=== PATIENT | female | born 1980 | race Two or more races ===

== ENCOUNTER 2019-08-06 03:21 | Emergency (ER) | payer SELFPAY ==
[~2019-08-06] VITALS: Ht 157.5 cm; Wt 72.0 kg
[2019-08-06] MEDS ORDERED: HYDROcodone/APAP 5/325 TABLET ONE (03:46)
--- NOTE | 2019-08-06 03:53 | NUR ---
PER ER RAGHAVENDRA GALLARDO, HOLD OFF ON URINE SAMPLE FOR NOW
--- NOTE | 2019-08-06 03:54 | NUR ---
PT WITH ULTRASOUND AT THIS TIME
[2019-08-06 04:00] LABS: ALANINE AMINOTRANSFERASE 11 U/L (12-78); ANION GAP 8 mmol/L (5-15); CALCIUM 8.8 mg/dL (8.5-10.1); CHLORIDE 109 mmol/L (98-107); MEAN CORPUSCULAR HGB CONC 31.9 g/dL (32.4-35.8); MEAN CORPUSCULAR VOLUME 78.4 fL (80-100); MEAN PLATELET VOLUME 8.9 fL (7.4-10.4); PLATELET COUNT 278 x10^3/uL (130-400); RED BLOOD COUNT 5.11 x10^6/uL (3.82-5.3); RED CELL DISTRIBUTION WIDTH 26.1 % (9.6-15.2)
[2019-08-06] MEDS ORDERED: HYDROcodone/APAP 5/325 TABLET PO ONE (04:00)
[2019-08-06] MEDS ORDERED: HYDROmorphone 1 MG/ML, 1ML INJ ONE (04:14)
[2019-08-06 04:18] LABS: ALKALINE PHOSPHATASE 69 U/L (45-117); BILIRUBIN,TOTAL 0.2 mg/dL (0.2-1.0); TOTAL PROTEIN 7.7 g/dL (6.4-8.2)
--- NOTE | 2019-08-06 04:18 | NUR ---
PT BACK FROM ULTRASOUND AND TECH STATES THAT HE VISUALIZED THE FETUS IN THE CERVIX AND VAGINAL CANAL. I WENT RECIEVED A CONTAINER TO PLACE THE PRODUCTS OF CONCEPTION IN. PAULINA AND I WILL EXTRACT THE REMAINS. GETTING ROOM SET UP NOW. PT MEDICATED A SECOND TIME FOR PAIN.
[2019-08-06 04:26] LABS: BASOPHILS # (AUTO) 0.11 x10^3/uL (0-0.1); BASOPHILS % (AUTO) 1 % (0-1); EOSINOPHILS # (AUTO) 0.23 x10^3/uL (0-0.4); EOSINOPHILS % (AUTO) 3 % (1-7); LYMPHOCYTES # (AUTO) 3.32 x10^3/uL (1-3.4); LYMPHOCYTES % (AUTO) 35 % (22-44); MD MORPH REVIEW ONLY; MONOCYTES # (AUTO) 0.54 x10^3/uL (0.2-0.8); MONOCYTES % (AUTO) 6 % (2-9); NEUTROPHILS # (AUTO) 5.32 x10^3/uL (1.8-6.8); NEUTROPHILS % (AUTO) 56 % (42-75)
[2019-08-06 04:27] LABS: ANISOCYTOSIS 1+; HYPOCHROMIA 1+; MICROCYTOSIS 1+
[2019-08-06 04:28] LABS: <PLATELET ESTIMATE> ADEQUATE; <PLT MORPHOLOGY> NORMAL PLT MORPH; OVALOCYTES 1+; TEAR DROPS 1+
[2019-08-06] MEDS ORDERED: HYDROmorphone 1 MG/ML, 1ML INJ IM ONE (04:30)
[2019-08-06 04:58] VITALS: BP 116/78
--- NOTE | 2019-08-06 05:13 | NUR ---
POC COLLECTED BY RAGHAVENDRA GALLARDO FROM VAGINAL CANAL. SPECIMEN PLACED IN A CONTAINER WITH NORMAL SALINE AND WALKED TO THE LAB WITH HISTOPATHOLOGY SLIP ATTACHED TO CONTAINER.
[2019-08-06] MEDS ORDERED: KETOROLAC 60 MG/2 ML ONE (06:07)
[2019-08-06] MEDS ORDERED: ONDANSETRON ODT 4 MG ONE (06:26)
[2019-08-06] MEDS ORDERED: KETOROLAC 60 MG/2 ML IM ONE (06:30)
--- NOTE | 2019-08-06 06:44 | NUR ---
PT WITH LARGE AMOUNT OF BLOOD CLOTS FROM VAGINA WHEN SHE STOOD UP. PT TAKEN TO BATHROOM TO ALLOW FOR PASSAGE OF BLOOD. APPROX 500CC OF BLOOD. ER MD MATTHEW NOTIFIED. PT PROVIDED PADS, CLEAN UNDERWEAR AND MEDICATED FOR PAIN THEN TAKEN TO THE DISCHARGE DESK.
--- NOTE | 2019-08-06 06:46 | NUR ---
PT PROVIDED INFORMATION ABOUT BLOOD LOSS AND WHEN TO COME BACK TO THE ED IF NEEDED. PT INFORMED ON THE NEED FOR FOLLOW UP WITH OBGYN
[2019-08-06] MEDS ORDERED: ONDANSETRON ODT 4 MG PO ONE (07:00)
== END 2019-08-06 06:48 | disposition home or self-care (01) ==
LOC: ED 06:25
DX: O20.0 Threatened abortion (principal)
CPT/HCPCS: 36415; 76801; 80053; 84702; 85014; 85018; 85025; 86901; 88300; 96372; 99284; J1170; J1885; Q0162